=== PATIENT | male | born 1985 | race Caucasian/White ===

== ENCOUNTER 2020-07-21 20:09 | Emergency (ER) | payer SELFPAY ==
[2020-07-21 21:27] VITALS: BP 125/80; PULSE 100; RESP 20; TEMP 99.3
--- NOTE | 2020-07-21 22:35 | ED ---
URI HPI - General Chief Complaint: Upper Respiratory Infection Stated Complaint: Throat pain Time Seen by Provider: 07/21/20 22:28 Source: patient, RN notes reviewed Mode of arrival: ambulatory Limitations: no limitations - History of Present Illness Initial Comments: Patient is a 35-year-old male presents to emergency department complaining of upper respiratory tract symptoms for the last 2 days. He notes that he is not tested for Covid yet. He was in no apparent distress or pain while sitting up in the room during exam and interview. He denied any shortness of breath cough and general muscle aches or fatigue. He had no other complaints. He just wanted to come in to get tested for Covid. He denied any chest pain headache nausea vomiting diarrhea constipation fever fatigue chills. - Related Data Home Medications Medication Instructions Recorded Confirmed No Known Home Medications 08/03/15 08/03/15 Allergies Allergy/AdvReac Type Severity Reaction Status Date / Time venom-honey bee Allergy Severe Anaphylaxis Verified 07/21/20 21:27 [bee venom (honey bee)] Review of Systems ROS Statement: Those systems with pertinent positive or pertinent negative responses have been documented in the HPI. ROS Other: All systems not noted in ROS Statement are negative. Past Medical History Past Medical History: Asthma, Seizure Disorder Additional Past Medical History / Comment(s): frequent upset stomach History of Any Multi-Drug Resistant Organisms: None Reported Past Surgical History: No Surgical Hx Reported Past Anesthesia/Blood Transfusion Reactions: Unable to Obtain Additional Past Anesthesia/Blood Transfusion Reaction / Comment(s): no history Past Psychological History: ADD/ADHD, Anxiety, Bipolar, Depression, Panic Disorder Smoking Status: Never smoker Past Alcohol Use History: None Reported, Rare Past Drug Use History: None Reported General Exam Limitations: no limitations General appearance: alert, in no apparent distress Head exam: Present: atraumatic, normocephalic, normal inspection Eye exam: Present: normal appearance, PERRL, EOMI. Absent: scleral icterus, conjunctival injection, periorbital swelling Neck exam: Present: normal inspection. Absent: tenderness, meningismus, lymphadenopathy Respiratory exam: Present: normal lung sounds bilaterally. Absent: respiratory distress, wheezes, rales, rhonchi, stridor Cardiovascular Exam: Present: regular rate, normal rhythm, normal heart sounds. Absent: systolic murmur, diastolic murmur, rubs, gallop, clicks GI/Abdominal exam: Present: soft, normal bowel sounds. Absent: distended, tenderness, guarding, rebound, rigid Extremities exam: Present: normal inspection, full ROM, normal capillary refill. Absent: tenderness, pedal edema, joint swelling, calf tenderness Neurological exam: Present: alert, oriented X3, CN II-XII intact Psychiatric exam: Present: normal affect, normal mood Skin exam: Present: warm, dry, intact, normal color. Absent: rash Course Vital Signs 07/21/20 07/21/20 21:25 22:28 Temperature 99.3 F Pulse Rate 100 Respiratory 20 20 Rate Blood Pressure 125/80 O2 Sat by Pulse 99 Oximetry Medical Decision Making - Medical Decision Making 35-year-old male complaining of upper respiratory tract infection symptoms such as cough. Covid test ordered. Covid test positive. Case discussed with Dr. Rucker, patient can discharge home with conservative management. Due to him having stable vital signs not running a temperature and saturating at 99% on room air. - Lab Data Lab Results 07/21/20 Range/Units 21:29 Coronavirus (PCR) Detected A (Not Detectd) Disposition Clinical Impression: COVID-19 Disposition: HOME SELF-CARE Condition: Stable Instructions (If sedation given, give patient instructions): Upper Respiratory Infection (ED), Coronavirus Disease 2019 (COVID-19) Additional Instructions: Please return to the Emergency Department if symptoms worsen or any other concerns. Follow-up with primary care as soon as possible. Per CDC guidelines quarantine for 10-14 days from symptom onset. Can take [id number] anti-inflammatories for symptomatically control of fever and or muscle aches. Rest, increase fluids. Is patient prescribed a controlled substance at d/c from ED?: No Referrals: None,Stated [Primary Care Provider] - 1-2 days Time of Disposition: 22:35
== END 2020-07-21 22:43 | disposition home or self-care (01) ==
LOC: EC 20:09
DX: U07.1 COVID-19 (principal); Z91.030 Bee allergy status
CPT/HCPCS: 87635; 99283

== ENCOUNTER 2020-12-08 13:56 | Emergency (ER) | payer OTHER ==
[2020-12-08 14:26] VITALS: BP 145/115; PULSE 85; RESP 18; TEMP 98.2
[2020-12-08] MEDS ORDERED: HYDROcodone/APAP 5-325MG 1 EACH TAB PO STA (15:45)
[2020-12-08] MEDS ORDERED: KETOROLAC 15 MG/ML 1 ML VIAL IM STA (15:45)
[2020-12-08] MEDS ORDERED: LIDOCAINE 5% PATCH TOPICAL STA (15:45)
--- NOTE | 2020-12-08 15:59 | ED ---
General Adult HPI - General Chief complaint: Neck Pain/Injury Stated complaint: Neck pain Time Seen by Provider: 12/08/20 15:33 Source: patient, RN notes reviewed, old records reviewed Mode of arrival: ambulatory Limitations: no limitations - History of Present Illness Initial comments: Patient is a 35-year-old male with no significant past medical history presents emergency Department complaining of acute onset of neck pain. He states the pain is sharp and radiates to his left arm. Denies any trauma. States he does have a history of falling in the past, multiple years ago but nothing acute. He states he has received this pain before but is worse today. He states that his pain is mid and left neck with radiation down his left arm. Denies any weakness or numbness. States he is able to walk. Denies he blurry vision, headache, other sensory deficits. Denies any abdominal pain, chest pain, difficulty breathing. He states he was sleeping on his side when he first noticed the pain this morning. He states it was there is somewhat yesterday is uncertain what caused it. He is uncertain of any palliative factors. Provocative factors i nclude attempts to move his neck. He denies any headache. He presents emergency department over concern for this back pain. - Related Data Previous Rx's Medication Instructions Recorded Ibuprofen [Motrin] 800 mg PO Q8H PRN 7 Days #21 tab 12/08/20 Lidocaine 5% Patch [Lidoderm 5% 1 patch TOPICAL DAILY PRN #7 patch 12/08/20 Patch] Methocarbamol [Robaxin-750] 1,500 mg PO Q8HR PRN #42 tablet 12/08/20 Allergies Allergy/AdvReac Type Severity Reaction Status Date / Time venom-honey bee Allergy Severe Anaphylaxis Verified 12/08/20 14:26 [bee venom (honey bee)] Review of Systems ROS Statement: Those systems with pertinent positive or pertinent negative responses have been documented in the HPI. Review of Systems: CONST: Denies fever EYES: Denies blurry vision ENT: Denies nasal congestion C/V: Denies Chest pain RESP: Denies shortness of breath GI: Denies abdominal pain : Denies dysuria SKIN: Denies rash. MSK: Endorses neck pain NEURO: Denies headache ROS Other: All systems not noted in ROS Statement are negative. Past Medical History Past Medical History: Asthma, Seizure Disorder Additional Past Medical History / Comment(s): frequent upset stomach History of Any Multi-Drug Resistant Organisms: None Reported Past Surgical History: No Surgical Hx Reported Past Anesthesia/Blood Transfusion Reactions: Unable to Obtain Additional Past Anesthesia/Blood Transfusion Reaction / Comment(s): no history Past Psychological History: ADD/ADHD, Anxiety, Bipolar, Depression, Panic Disorder Smoking Status: Never smoker Past Alcohol Use History: None Reported, Rare Past Drug Use History: Marijuana General Exam - General Exam Comments Initial Comments: General: Appears in mild distress secondary to neck pain. HEAD: Normal with no signs of head trauma. EYES: PERRLA, EOMI, conjunctiva normal, no discharge. Pupils are 3 mm bilaterally. ENT: Hearing grossly intact, normal oropharynx. RESPIRATORY: Clear breath sounds bilaterally. No wheezes, rales, or rhonchi. C/V: Regular rate and rhythm. S1 and S2 auscultated, no edema, peripheral pulses 2+ and intact throughout ABD: Abd is soft, nontender, nondistended EXT: Normal range of motion, no obvious deformity. Patient has very slight midline cervical spine tenderness to palpation with some radiation to the left paraspinal muscles. This radiates down into the superior aspect of his left shoulder. This radiates along the trapezius muscle. He is able to move his neck in all motions, however is having some mild difficulty secondary to pain. No obvious injuries are appreciated. SKIN: No rashes or lesions observed on exposed skin. NEURO: Alert and oriented x 4. Cranial nerves II-XII intact. No focal sensory or strength deficits. Patient is intact strength and sensory in all 4 extremities. Limitations: no limitations Course Vital Signs 12/08/20 12/08/20 14:24 16:48 Temperature 98.2 F 98.2 F Pulse Rate 85 85 Respiratory 18 18 Rate Blood Pressure 145/115 145/115 O2 Sat by Pulse 98 98 Oximetry Medical Decision Making - Medical Decision Making Based on the patient's presentation and physical exam, I'm concerned for possible bony injury to the patient's neck that may have been previously undiagnosed. He does have what appears to be radicular symptoms into the left arm. I did discuss with him that we can obtain CT imaging was in the department but he may require an MRI. He expressed understanding. Patient otherwise has no acute complaint. He will be given analgesia including Robaxin, lidocaine patch, Toradol shot Sherman. We will obtain a CT cervical spine without contrast. Patient's CT imaging revealed no signs of acute fracture or subluxation of the cervical spine. Reevaluation come patient's pain is improved. We discussed the imaging and I recommended that he obtain an outpatient MRI. He'll be provided with an outpatient PCP to follow up for for prescription for an MRI. Was in agreement this plan. He will be given pain medications for home. He'll be provided with a work note as well. I will provide the patient with a prescription for Robaxin, ibuprofen, lidocaine. I instructed the patient to follow up with their PCP in the next 3 days. I provided contact information for follow up with city call Dr. Sewell. I explained that the patient should return to the emergency department if they exp erience any worsening symptoms. Strict return precautions were discussed with the patient. The patient expressed understanding of these instructions. I answered all questions that the patient had. The patient was discharged home in fair condition with their prescriptions and follow up information. Disposition Clinical Impression: Neck muscle strain, Neck pain, Radiculopathy Disposition: HOME SELF-CARE Condition: Fair Instructions (If sedation given, give patient instructions): Cervical Sprain (ED) Prescriptions: Lidocaine 5% Patch [Lidoderm 5% Patch] 1 patch TOPICAL DAILY PRN #7 patch PRN Reason: Pain Ibuprofen [Motrin] 800 mg PO Q8H PRN 7 Days #21 tab PRN Reason: Pain Methocarbamol [Robaxin-750] 1,500 mg PO Q8HR PRN #42 tablet PRN Reason: pain Is patient prescribed a controlled substance at d/c from ED?: No Referrals: None,Stated [Primary Care Provider] - 1-2 days Scooter Sewell MD [STAFF PHYSICIAN] - 1-2 days
[2020-12-08] MEDS ORDERED: methocarbamoL 500 MG TAB PO ONE (16:00)
--- NOTE | 2020-12-08 16:18 | CT ---
EXAMINATION TYPE: CT cervical spine wo con DATE OF EXAM: 12/08/2020 COMPARISON: None HISTORY: Left sided neck pain radiating to left arm. CT DLP: 267.[address] of the cervical spine was performed with bone and soft tissue window settings submitted . Coronal and sagittal reconstruction is obtained. There is normal alignment and prevertebral soft tissues. I do not see evidence for fracture or subluxation. No significant degenerative changes are present. Upper lobe pulmonary scarring. IMPRESSION: No evidence for fracture or subluxation of the cervical spine. No evidence of disc herni ation or protrusion. Symptoms persist consider MRI.
== END 2020-12-08 16:51 | disposition home or self-care (01) ==
LOC: EC 13:56
DX: S16.1XXA Strain of muscle, fascia and tendon at neck level, initial encounter (principal); M54.12 Radiculopathy, cervical region; J45.909 Unspecified asthma, uncomplicated; Z91.030 Bee allergy status; X58.XXXA Exposure to other specified factors, initial encounter
CPT/HCPCS: 72125; 99284; 96372; J1885

== ENCOUNTER 2024-09-03 20:53 | Emergency (ER) | payer OTHER ==
[2024-09-03 21:03] VITALS: BP 128/84; PULSE 74; TEMP 98.8
--- NOTE | 2024-09-03 21:36 | ED ---
General Adult HPI - General Chief complaint: Head Injury Stated complaint: head injury Time Seen by Provider: 09/03/24 21:09 Source: patient Mode of arrival: ambulatory - History of Present Illness Initial comments: Patient is a 39-year-old male no significant past medical history presenting today for head injury. Patient states he was at work when he hit his head on a shelf as he was standing. He did not lose consciousness. He is not on blood thinners. This happened around 6:30 PM. He states he had some mild headache described as pressure behind his left eye so his work sent him to the ED to be evaluated. Patient denies seizure, vomiting, nausea, changes in vision, severe headache, dizziness, numbness, weakness, neck pain. He states pressure in his head is very mild in nature. - Related Data Previous Rx's Medication Instructions Recorded Ibuprofen [Motrin] 800 mg PO Q8H PRN 7 Days #21 tab 12/08/20 Lidocaine 5% Patch [Lidoderm 5% 1 patch TOPICAL DAILY PRN #7 patch 12/08/20 Patch] methocarbamoL [Robaxin-750] 1,500 mg PO Q8HR PRN #42 tablet 12/08/20 Allergies Allergy/AdvReac Type Severity Reaction Status Date / Time venom-honey bee Allergy Severe Anaphylaxis Verified 09/03/24 21:02 [bee venom (honey bee)] Review of Systems ROS Statement: Those systems with pertinent positive or pertinent negative responses have been documented in the HPI. ROS Other: All systems not noted in ROS Statement are negative. Past Medical History Past Medical History: Asthma, Seizure Disorder Additional Past Medical History / Comment(s): frequent upset stomach History of Any Multi-Drug Resistant Organisms: None Reported Past Surgical History: No Surgical Hx Reported Past Anesthesia/Blood Transfusion Reactions: Unable to Obtain Additional Past Anesthesia/Blood Transfusion Reaction / Comment(s): no history Past Psychological History: ADD/ADHD, Anxiety, Bipolar, Depression, Panic Disorder Smoking Status: Never smoker Past Alcohol Use History: None Reported, Rare Past Drug Use History: Marijuana General Exam - General Exam Comments Initial Comments: PE: CONSTITUTIONAL: No apparent distress, well appearing SKIN: Warm, dry, no jaundice, hives or petechiae, small scratch as noted below EYES: Pupils are equally round, extraocular movements intact without nystagmus, clear conjunctiva, non-icteric sclera HENT: Normocephalic, small scratch left forehead, no underlying hematoma, moist mucus membranes, oropharynx clear without exudates, tympanic membrane's are pearly martinez bilaterally NECK: , Full range of motion, normal appearance, no midline spinal tenderness palpation PULMONARY: [Resp unlabored equal chest rise and fall CARDIOVASCULAR: Extremities appear well-perfused MUSCULOSKELETAL: Extremities have no gross deformity, no edema, redness, or swelling. NEUROLOGIC: [_a/o x 3, GCS 15, normal mentation and speech. Moves all extremities x 4 without motor or sensory deficit, no focal neurologic deficits, normal finger-nose testing, rapid alternating movements, [id number] PSYCHIATRIC:_normal mood and affect, thought process is clear and linear Course Vital Signs 09/03/24 09/03/24 21:00 21:46 Temperature 98.8 F Pulse Rate 74 74 Respiratory 18 15 Rate Blood Pressure 128/84 O2 Sat by Pulse 98 99 Oximetry Medical Decision Making - Medical Decision Making Was pt. sent in by a medical professional or institution (, PA, REGIONAL FACILITIES MANAGER, urgent c are, hospital, or fdc...) When possible be specific @ -No Did you speak to anyone other than the patient for history (EMS, parent, family, police, friend...)? What history was obtained from this source @ -No Did you review nursing and triage notes (agree or disagree)? Why? @ -[I reviewed and agree with nursing and triage notes Were old charts reviewed (outside hosp., previous admission, EMS record, old EKG, old radiological studies, urgent care reports/EKG's, fdc records)? Report findings @ -Medical records were not reviewed Differential Diagnosis (chest pain, altered mental status, abdominal pain women, abdominal pain men, vaginal bleeding, weakness, fever, dyspnea, syncope, headache, dizziness, GI bleed, back pain, seizure, CVA, palpatations, mental health, musculoskeletal)? @ -Differential diagnosis raise broad of top considerations include abrasion, contusion, concussion, traumatic intracranial hemorrhage this is not an all- inclusive list EKG interpreted by me (3pts min.). @ -As above X-rays interpreted by me (1pt min.). @ -None done CT interpreted by me (1pt min.). @ -None done U/S interpreted by me (1pt. min.). @ -None done What testing was considered but not performed or refused? (CT, X-rays, U/S, labs)? Why? CT brain was considered however Somali head CT rule indicates no CT head indicated at this point What meds were considered but not given or refused? Why? @ -None Did you discuss the management of the patient with other professionals (professionals i.e. , PA, REGIONAL FACILITIES MANAGER, lab, RT, psych nurse, case management social worker, diabetes nurse, teacher, certification officer, outsole caser)? Give summary @ -No Was smoking cessation discussed for >3mins.? @ -No Was critical care preformed (if so, how long)? @ -No Were there social determinants of health that impacted care today? How? (Homelessness, low income, unemployed, alcoholism, drug addiction, transportation, low edu. Level, literacy, decrease access to med. care, longterm, rehab)? @ -No Was there de-escalation of care discussed even if they declined (Discuss DNR or withdrawal of care, Hospice)? @ -No What co-morbidities impacted this encounter? (DM, HTN, Smoking, COPD, CAD, Cancer, CVA, ARF, Chemo, Hep., AIDS, mental health diagnosis, sleep apnea, morbid obesity)? @ -None Was patient admitted / discharged? Hospital course, mention meds given and route, prescriptions, significant lab abnormalities, going to OR and other pertinent info. @ -Discharged- this is a pleasant 31-year-old gentleman presenting today for head injury at work. Patient is not on blood thinners. He had no seizure, GCS of 15, he has no signs of a depressed or open skull fracture, no signs of a basilar skull fracture, no episodes of emesis no signs of amnesia and is a none dangerous mechanism of injury. For this reason I do not feel CT brain is indicated. I discussed this with the patient which he was agreeable. Plan for discharge home. Patient comfortable with plan. In my medical judgment there is currently no evidence of an immediate life- threatening or surgical condition. Discharge is therefore indicated at this time. Discharge treatment instructions, follow up instructions, and appropriate emergency department return precautions were discussed with the patient and/or medical decision maker. Patient and/or medical decision maker expressed understanding of and agreed with the treatment plan, follow up instructions, and emergency department return precaution. All patient's and/or medical decision maker's questions were answered. The patient was instructed to return to the ED for any changes in symptoms, persistent symptoms, inability to obtain proper follow-up or for any further concerns. Patient received verbal and written instructions for this condition. Undiagnosed new problem with uncertain prognosis? @ -No Drug Therapy requiring intensive monitoring for toxicity (Heparin, Nitro, Insulin, Cardizem)? @ -No Were any procedures done? @ -No Diagnosis/symptom? @Forehead abrasion, head injury Acute, or Chronic, or Acute on Chronic? @acute Uncomplicated (without systemic symptoms) or Complicated (systemic symptoms)? @ -uncomplicated Side effects of treatment? @ -No Exacerbation, Progression, or Severe Exacerbation? @ -No Poses a threat to life or bodily function? How? (Chest pain, [place], [place], pneumonia, PE, COPD, DKA, ARF, appy, cholecystitis, CVA, Diverticulitis, Homicidal, Suicidal, threat to staff... and all critical care pts) @ -No Disposition Clinical Impression: Head injury Disposition: HOME SELF-CARE Condition: Good Instructions (If sedation given, give patient instructions): Head Injury (ED) Additional Instructions: Every disease is a spectrum and a small chance still exists that a serious condition could develop, for this reason, please monitor yourself closely for new, changing or worsening symptoms, symptoms that persist beyond 48 hours, severe headache, changes in vision, nausea and vomiting, new seizures, confusion fever, inability to tolerate/keep down fluids or your medications, inability to follow up with outpatient providers as instructed and should you experience these symptoms or should you have any further concerns for your wellbeing please return to the ED or call 911 immediately. PLEASE call your primary care physician as soon as possible to arrange / discuss plan for followup appointment. Appointment in the next 1-3 days is strongly encouraged if possible. PLEASE let us know here before you leave if there is anything further we can do to be of any assistance. Take care and feel Better! Is patient prescribed a controlled substance at d/c from ED?: No Referrals: None,Stated [Primary Care Provider] - 1-2 days
[2024-09-03 21:48] VITALS: RESP 15
== END 2024-09-03 21:48 | disposition home or self-care (01) ==
LOC: EC 20:53
DX: S00.81XA Abrasion of other part of head, initial encounter (principal); Z91.030 Bee allergy status; W22.8XXA Striking against or struck by other objects, initial encounter; Y99.0 Civilian activity done for income or pay
CPT/HCPCS: 99283